=== PATIENT | male | born 1970 | race Caucasian/White ===

== ENCOUNTER 2016-05-29 20:11 | Emergency (ER) | payer SELFPAY ==
[~2016-05-29] VITALS: Ht 177.8 cm; Wt 113.6 kg
[~2016-05-29 20:11] MED LIST: AMLO5TAB2 PO; LOSA50TA37 PO
[2016-05-29 20:18] VITALS: BP 147/115; PULSE 90; RESP 24; O2SAT 98
--- NOTE | 2016-05-29 21:16 | ED.REPORT ---
HPI-Dental/Mouth Prob Date of Service May 29, 2016 ED Provider: Dr. Alyson Godfrey Patient is a 45-year-old male who presents to the ED with right lower tooth pain which has been hurting over the past month and increased in severity today. He took oxycodone to try to reduce his pain but it did not help his symptoms. His pain spiked today after eating dinner and reports it has now moderately subsided. Pt c/o associated lightheadedness and denies fever and chills. Nursing Notes Stated Complaint: DENTAL PAIN Chief Complaint: Dental Nursing Notes Reviewed: Yes Allergies: Coded Allergies: No Known Allergies (Verified Allergy, Unknown, 05/29/16) Scheduled Amlodipine (Amlodipine) 5 Mg Tablet 5 MG PO DAILY Amoxicillin (Amoxicillin) 500 Mg Tablet 500 MG PO TID Losartan Potassium (Losartan Potassium) 50 Mg Tablet 50 MG PO DAILY General Time Seen by MD: 21:15 Chief Complaint Tooth pain Hx Obtained From: Patient Arrived By: Walk-in Onset Occurred: 1 day ago (1 month) Symptom Duration: Since onset Severity: Current: Moderate Recent Healthcare: No recent doctor visit, No recent hospitalization Similar Sx Previous: No Past Medical History Past Medical History denies Past Surgical History denies Smoking History Unknown if Ever Smoker Social History Other Social History: Good social support, Ambulatory Status Independent Review of Systems Constitutional: Denies: Chills, Fever Ears / Nose / Throat: Reports: Toothache Complete sys rev & neg: except as marked. Neurologic: Reports: Lightheaded Physical Exam Initial Vital Signs Vital Signs (First) Date Time Temp Pulse Resp B/P Pulse Ox O2 Delivery O2 Flow Rate FiO2 05/29/16 20:18 36.4 90 24 147/115 98 Room Air Initial VS: Reviewed, Vital signs abnormal General/Constitutional: Well-developed, Well-nourished Head / Eyes: Atraumatic, Normocephalic, PERRL Respiratory: Breath sounds normal, Clear to auscultation, No respiratory distress Cardiovascular: Regular rate & rhythm, Heart sounds normal, Intact distal pulses Skin: Warm, Dry, No cyanosis Neurologic: Alert, Oriented, Nonfocal ENT: Atraumatic, Airway patent, Mucous membranes moist, Pharynx NL #18 tooth erroded and tender to percussion Neck: Atraumatic, Supple, No meningismus, Full range of motion, No swelling, Non-tender Head / Eyes: Atraumatic, Normocephalic, PERRL Procedures Dental Nerve Block Time: 22:05 Block Performed by: ED physician Consent / Setup / Site Prep: Consent from patient Anesthesia: Topical lidocaine Local Anesthesia: Bupivacaine 0.25%, 3cc Procedural Sedation/Analgesia: Sedation: Ketamine Post-Procedure / Complications: No complications, Condition improved, Tolerated procedure well, Patient stable, No bleeding Re-Eval/Medical Decision Med Decision/Clinical Course The patient has signs of a dental infection, there is no obvious abscess forming. He is given a dental block with improved pain control and started on amoxicillin. Re-Evaluation/Progress : Time of Eval: 21:53 Patient Status: Condition unchanged Re-Evaluation/Progress Note: Pt rechecked. Informed pt of diagnosis and plan for treatment. Pt understands and agrees with plan. F/U and RTER warnings given. All questions addressed. Counseled Regarding: Diagnosis, Lab results, Need for follow-up, When/why to return to ED Discharge & Departure Primary Impression: Dental infection Disposition: Home Discharge Condition All VS Reviewed: Yes Condition: Stable Additional Instructions: Thank your for coming to the Emergency Department today. Your diagnosis is dental infection. Take the antibiotic (amoxicillin) every 8 hrs. Continue to take naproxen for pain but do not take it for more then 7 days in a row. See a dentist as soon as possible. Return to the Emergency Department for any fevers, swelling, or new and worsening symptoms. We hope you feel better soon! Referrals: Joslyn Choi (PCP) [place] Attestation Portion of this note were transcribed by Unique Farris. I, Dr. Godfrey, personally performed the history, physical exam, and medical decision-making: I reviewed and confirmed the accuracy for the information in the transcribed note. Signed by: nicolette Underwood, 05/29/16 2200 copies to: Joslyn Choi Jena M MD May 29, 2016 21:16 UNIQUE FARRIS May 29, 2016 21:56
[2016-05-29] MEDS ORDERED: AMOX500T2 PO (22:06)
[2016-05-29 22:14] VITALS: BP 138/85; PULSE 88; RESP 17; O2SAT 99
== END 2016-05-29 22:10 | disposition home or self-care (01) ==
LOC: SED 20:11
DX: K04.7 Periapical abscess without sinus (principal); R42 Dizziness and giddiness